=== PATIENT | female | born 1990 | race Hispanic/Latino ===

== ENCOUNTER 2017-10-24 08:52 | Emergency (ER) | payer SELFPAY ==
[~2017-10-24] VITALS: Ht 162.6 cm; Wt 76.7 kg
[2017-10-24] MEDS ORDERED: SODIUM CHLORIDE 0.9% 1000ML 1,000 ML IV STA (08:57)
[2017-10-24] MEDS ORDERED: ONDANSETRON HCL INJ 2 MG/ML VIAL IV STA (08:57)
[2017-10-24 09:19] LABS: CLARITY,URINE CLOUDY (CLEAR); COLOR,URINE YELLOW (YELLOW); LEUKOCYTE ESTERASE ,URINE 1+ (NEGATIVE); NITRITE,URINE NEGATIVE (NEGATIVE)
[2017-10-24 09:20] LABS: BILIRUBIN,URINE 3+ (NEGATIVE); KETONES,URINE 3+ (NEGATIVE); PROTEIN,URINE DIPSTICK 1+ (NEGATIVE); URINE UROBILINOGEN 1 mg/dL (0.2 - 1)
[2017-10-24 09:21] LABS: AMPHETAMINES SCREEN,URINE NEGATIVE (NEGATIVE); BENZODIAZEPINES SCREEN,URINE NEGATIVE (NEGATIVE); PHENCYCLIDINE SCREEN,URINE NEGATIVE (NEGATIVE)
[2017-10-24 09:33] LABS: BACTERIA,URINE MANY /HPF; EPITHELIAL CELLS,URINE MANY /LPF; RBC,URINE 0-5 /HPF (0-5); WBC,URINE (MAN) >50 /HPF (0-5)
[2017-10-24 09:39] LABS: BASOPHILS # (AUTO) 0.1 (0.0-0.1); BASOPHILS % 0.5 % (0.0-1.0); EOSINOPHILS # (AUTO) 0.1 (0.0-0.4); EOSINOPHILS % 0.5 % (0.0-6.0); HEMOGLOBIN 15.7 g/dL (12.0-16.0); LYMPHOCYTES # (AUTO) 2.1 (1.0-3.2); LYMPHOCYTES % 19.5 % (18.0-39.1); MEAN CORPUSCULAR HEMOGLOBIN 30.6 pg (28-32); MEAN CORPUSCULAR HGB CONC 34.1 g/dL (31-35); MEAN CORPUSCULAR VOLUME 89.7 fL (81-99); MONOCYTES % 8.9 % (4.4-11.3); NEUTROPHILS # (AUTO) 7.7 (2.1-6.9); NEUTROPHILS % 70.2 % (38.7-80.0); PLATELET COUNT 489 x10e3/uL (140-360); RED BLOOD COUNT 5.13 x10e6/uL (3.6-5.1); RED CELL DISTRIBUTION WIDTH 11.7 % (11.7-14.4)
[2017-10-24 09:59] LABS: ALANINE AMINOTRANSFERASE 71 IU/L (0-55); ALBUMIN 3.9 g/dL (3.5-5.0); ALBUMIN/GLOBULIN RATIO 0.7 (0.8-2.0); ALKALINE PHOSPHATASE 57 IU/L (40-150); AMYLASE 64 U/L (25-125); ANION GAP 16.5 mmol/L (8-16); BLOOD UREA NITROGEN 13 mg/dL (7-26); BUN/CREATININE RATIO 16 (6-25); CARBON DIOXIDE 24 mmol/L (22-29); CHLORIDE 95 mmol/L (98-107); CREATININE, SERUM 0.82 mg/dL (0.57-1.11); EST GLOMERULAR FILTRATION RATE > 60 ML/MIN (60-); GLUCOSE 108 mg/dL (74-118); LIPASE 49 U/L (8-78); POTASSIUM 3.5 mmol/L (3.5-5.1); SODIUM 132 mmol/L (136-145)
[2017-10-24] MEDS ORDERED: CEFTRIAXONE SOD 1 GM VIAL IV SCH (10:15)
[2017-10-24 11:23] VITALS: BP 119/92
[2017-10-30] MEDS ORDERED: REGLAN10 MG PO (11:36)
== END 2017-10-24 11:15 | disposition home or self-care (01) ==
LOC: ER 08:52
DX: N39.0 Urinary tract infection, site not specified (principal); R11.2 Nausea with vomiting, unspecified; E86.0 Dehydration
CPT/HCPCS: 36415; 80053; 80307; 81001; 82150; 83690; 84702; 85025; 87086; 99284; J0696; J2405; J7030

== ENCOUNTER 2017-10-29 06:15 | Emergency (ER) | payer SELFPAY ==
[~2017-10-29] VITALS: Ht 162.6 cm; Wt 76.7 kg
--- OUTSIDE RECORDS SUMMARY | 2017-10-29 06:17 | XMS REPORT | Continuity of Care Document ---
Author Author [facility] Organization [facility] Address [address] [place] [address] Phone Unavailable Care Team Providers Care Rental Clerk Name Role Phone NO, PCP PCP Unavailable Advance Directives Directive Response Recorded Date/Time Does the patient have an advance directive? No 10/24/17 9:30am If yes, is advance directive on file with [facility]? No 10/24/17 9:30am If not on file with [facility] will patient provide a copy? No 10/24/17 9:30am Do you have a Directive to Physician? No 10/24/17 9:30am Do you have a Medical Power of Cocoa Roaster? No 10/24/17 9:30am Do you have an out of hospital Do Not Resuscitate Order? No 10/24/17 9:30am Do you have any special needs we should be aware of? No 10/24/17 9:30am Do you have a support person here with you today? Yes 10/24/17 9:30am Did patient receive Notice of Privacy Practices? Yes 10/24/17 9:30am Did patient receive patient rights and responsibilities? Yes 10/24/17 9:30am Problems No problem information available. Medications No medication information available. Social History Smoking Status Start Date Stop Date Never Smoker Hospital Discharge Instructions No hospital discharge instruction information available. Plan of Care Discharge Date 10/24/17 11:15am Disposition HOME, SELF-CARE Condition at Discharge Stable Instructions/Education Provided Urinary Tract Infection - Women Vomiting - Adult Forms Provided Work/School Excuse Prescriptions See Medication Section Referrals PANDA HOPKINS MD Address: [address] [place] [address] [address] [place] [address] CRISTY MCKEON MD Address: [address] [place] [address] Additional Instructions/Education 1. increase oral fluids 2. tylenol and motrin as needed 3. return to ed as neede 4. follow up with primary doctor / GI doctor in 1-2 days without fail Functional Status No functional status information available. Allergies, Adverse Reactions, Alerts No known allergies. Immunizations No immunization information available. Vital Signs Acute Vital Signs Vital Response Date/Time Pulse Pulse Rate (adult) 94 bpm (60 - 90) 10/24/2017 11:23am Respiratory Rate 14 bpm (12 - 24) 10/24/2017 11:23am Blood Pressure 119/92 mm Hg 10/24/2017 11:23am Height 5 ft 4 in 10/24/2017 9:00am Weight 169 lb 10/24/2017 9:00am Body Mass Index 29.0 kg/m^2 10/24/2017 9:00am Results Laboratory Results Test Name Result Units Flags Reference Collection Date/Time Result Date/ Time Comments White Blood Count 10.93 x10e3/uL H 4.8-10.8 10/24/2017 9:15am 2017 9:42am Red Blood Count 5.13 x10e6/uL H 3.6-5.1 10/24/2017 9:15am 10/24/2017 9: 42am Hemoglobin 15.7 g/dL 12.0-16.0 10/24/2017 9:1510/24/2017 9:42am Hematocrit 46.0 % H 34.2-44.1 10/24/2017 9:1510/24/2017 9:42am Mean Corpuscular Volume 89.7 fL 81-99 10/24/2017 9:15am 10/24/2017 9: 42am Mean Corpuscular Hemoglobin 30.6 pg 28-32 10/24/2017 9:15am 10/24/2017 9:42am Mean Corpuscular Hemoglobin Concent 34.1 g/dL 31-35 10/24/2017 9:15am 10/24/2017 9:42am Red Cell Distribution Width 11.7 % 11.7-14.4 10/24/2017 9:152017 9:42am Platelet Count 489 x10e3/uL H 140-360 10/24/2017 9:15am 10/24/2017 9: 42am Neutrophils (%) (Auto) 70.2 % 38.7-80.0 10/24/2017 9:15am 10/24/2017 9: 42am Lymphocytes (%) (Auto) 19.5 % 18.0-39.1 10/24/2017 9:1510/24/2017 9: 42am Monocytes (%) (Auto) 8.9 % 4.4-11.3 10/24/2017 9:15am 10/24/2017 9: 42am Eosinophils (%) (Auto) 0.5 % 0.0-6.0 10/24/2017 9:1510/24/2017 9: 42am Basophils (%) (Auto) 0.5 % 0.0-1.0 10/24/2017 9:10/24/2017 9:42am IM GRANULOCYTES % 0.4 % 0.0-1.0 10/24/2017 9:1510/24/2017 9:42am Neutrophils # (Auto) 7.7 H 2.1-6.9 10/24/2017 9:15am 10/24/2017 9: 42am Lymphocytes # (Auto) 2.1 1.0-3.2 10/24/2017 9:1510/24/2017 9:42am Monocytes # (Auto) 1.0 H 0.2-0.8 10/24/2017 9:10/24/2017 9:42am Eosinophils # (Auto) 0.1 0.0-0.4 10/24/2017 9:1510/24/2017 9:42am Basophils # (Auto) 0.1 0.0-0.1 10/24/2017 9:1510/24/2017 9:42am Absolute Immature Granulocyte (auto 0.04 x10e3/uL 0-0.1 10/24/2017 9: 1510/24/2017 9:42am Urine Color YELLOW YELLOW 10/24/2017 9:10am 10/24/2017 9:20am Urine Clarity CLOUDY H CLEAR 10/24/2017 9:10a10/24/2017 9:20am Urine Specific [place] 1.025 1.010-1.025 10/24/2017 9:10am 2017 9:20am Urine pH 6.5 5 - 7 10/24/2017 9:10a10/24/2017 9:20am Urine Leukocyte Esterase 1+ H NEGATIVE 10/24/2017 9:10a10/24/2017 9: 20am Urine Nitrite NEGATIVE NEGATIVE 10/24/2017 9:10a10/24/2017 9:20am Urine Protein 1+ H NEGATIVE 10/24/2017 9:10a10/24/2017 9:20am Urine Glucose (UA) NEGATIVE NEGATIVE 10/24/2017 9:10am 10/24/2017 9: 20am Urine Ketones 3+ H NEGATIVE 10/24/2017 9:10am 10/24/2017 9:20am Urine Opiates Screen NEGATIVE NEGATIVE 10/24/2017 9:10am 10/24/2017 9 :21am Urine Barbiturates Screen NEGATIVE NEGATIVE 10/24/2017 9:10a2017 9:21am Urine Phencyclidine Screen NEGATIVE NEGATIVE 10/24/2017 9:10am 2017 9:21am Urine Amphetamines Screen NEGATIVE NEGATIVE 10/24/2017 9:10am 2017 9:21am Urine Methamphetamines Screen NEGATIVE NEGATIVE 10/24/2017 9:10am 9:21am Urine Benzodiazepines Screen NEGATIVE NEGATIVE 10/24/2017 9:10am 9:21am Urine Cocaine Screen NEGATIVE NEGATIVE 10/24/2017 9:10a10/24/2017 9 :21am Urine Cannabinoids Screen NEGATIVE NEGATIVE 10/24/2017 9:10am 2017 9:21am THESE RESULTS ARE FOR MEDICAL TREATMENT ONLY *THIS REPORT CONTAINS UNCONFIRMED SCREENING RESULTS* POSITIVE RESULTS WILL BE CONFIRMED BY REFERENCE LAB UPON REQUEST CUT-OFF DRUG CLASS CONCENTRATION ng/mL Amphetamines 1000 Methamphetamines 1000 Cocaine 300 Opiate 300 Phencyclidine 25 Cannabinoid 50 Barbiturates 300 Benzodiazepine 300 Methadone 300 Urine Methadone Screen NEGATIVE NEGATIVE 10/24/2017 9:10am 2017 9:21am THESE RESULTS ARE FOR MEDICAL TREATMENT ONLY *THIS REPORT CONTAINS UNCONFIRMED SCREENING RESULTS* POSITIVE RESULTS WILL BE CONFIRMED BY REFERENCE LAB UPON REQUEST CUT-OFF DRUG CLASS CONCENTRATION ng/mL Amphetamines 1000 Methamphetamines 1000 Cocaine Metabolite 300 Opiate 300 Phencyclidine 25 Cannabinoid 50 Barbiturates 300 Benzodiazepine 300 Methadone 300 Urine Urobilinogen 1 mg/dL 0.2 - 1 10/24/2017 9:10a10/24/2017 9:20am Urine Bilirubin 3+ H NEGATIVE 10/24/2017 9:10a10/24/2017 9:20am Urine Blood 2+ H NEGATIVE 10/24/2017 9:10a10/24/2017 9:20am Urine WBC >50 /HPF H 0-5 10/24/2017 9:10a10/24/2017 9:33am Urine RBC 0-5 /HPF 0-5 10/24/2017 9:10a10/24/2017 9:33am Urine Bacteria MANY /HPF H NONE 10/24/2017 9:10a10/24/2017 9:33am Urine Epithelial Cells MANY /LPF NONE 10/24/2017 9:10a10/24/2017 9: 33am Sodium Level 132 mmol/L L 136-145 10/24/2017 9:1510/24/2017 10:00am Potassium Level 3.5 mmol/L 3.5-5.1 10/24/2017 9:1510/24/2017 10: 00am Chloride Level 95 mmol/L L 98-107 10/24/2017 9:10/24/2017 10:00am Carbon Dioxide Level 24 mmol/L 22-29 10/24/2017 9:1510/24/2017 10: 00am Anion Gap 16.5 mmol/L H 8-16 10/24/2017 9:10/24/2017 10:00am Blood Urea Nitrogen 13 mg/dL 7-10/24/2017 9:10/24/2017 10:00am Creatinine 0.82 mg/dL 0.57-1.11 10/24/2017 9:1510/24/2017 10:00am BUN/Creatinine Ratio 16 6-25 10/24/2017 9:1510/24/2017 10:00am Estimat Glomerular Filtration Rate > 60 ML/MIN 60- 10/24/2017 9:15 10:00am Ranges were taken from the National Kidney Disease Education Program and the National Kidney Foundation literature. Reference ranges: 60 or greater: Normal 16-59 (for 3 consecutive months): Chronic kidney disease 15 or less: Kidney failure Glucose Level 108 mg/dL 74-118 10/24/2017 9:1510/24/2017 10:00am Calcium Level 10.0 mg/dL 8.4-10.2 10/24/2017 9:1510/24/2017 10:00am Total Bilirubin 1.4 mg/dL H 0.2-1.2 10/24/2017 9:1510/24/2017 10: 00am Aspartate Amino Transf (AST/SGOT) 34 IU/L 5-34 10/24/2017 9:152017 10:00am Alanine Aminotransferase (ALT/SGPT) 71 IU/L H 0-55 10/24/2017 9:15 10:00am Total Protein 9.5 g/dL H 6.5-8.1 10/24/2017 9:1510/24/2017 10:00am Albumin 3.9 g/dL 3.5-5.0 10/24/2017 9:1510/24/2017 10:00am Globulin 5.6 g/dL H 2.3-3.5 10/24/2017 9:1510/24/2017 10:00am Albumin/Globulin Ratio 0.7 L 0.8-2.0 10/24/2017 9:1510/24/2017 10: 00am Alkaline Phosphatase 57 IU/L 40-150 10/24/2017 9:1510/24/2017 10: 00am Amylase Level 64 U/L 25-125 10/24/2017 9:1510/24/2017 10:00am Lipase 49 U/L 8-78 10/24/2017 9:1510/24/2017 10:00am Human Chorionic Gonadotropin, Qual NEGATIVE NEGATIVE 10/24/2017 9: 1510/24/2017 9:50am Procedures No procedure information available. Encounters Encounter Location Arrival/Admit Date Discharge/Depart Date Attending Provider Departed Emergency Room [facility] 10/24/17 8:52am 11:15am NICHELLE GAMA DO
[2017-10-29] MEDS ORDERED: SODIUM CHLORIDE 0.9% 1000ML 1,000 ML IV STA (06:43)
[2017-10-29] MEDS ORDERED: ONDANSETRON HCL 4 MG ORAL DISINTEGRATING TAB PO ONE (06:45)
[2017-10-29 06:58] LABS: BASOPHILS # (AUTO) 0.1 (0.0-0.1); BASOPHILS % 0.8 % (0.0-1.0); CLARITY,URINE CLOUDY (CLEAR); COLOR,URINE YELLOW (YELLOW); EOSINOPHILS # (AUTO) 0.1 (0.0-0.4); EOSINOPHILS % 0.8 % (0.0-6.0); HEMATOCRIT 41.5 % (34.2-44.1); HEMOGLOBIN 14.6 g/dL (12.0-16.0); LEUKOCYTE ESTERASE ,URINE 1+ (NEGATIVE); LYMPHOCYTES # (AUTO) 2.1 (1.0-3.2); LYMPHOCYTES % 27.1 % (18.0-39.1); MEAN CORPUSCULAR HEMOGLOBIN 31.4 pg (28-32); MEAN CORPUSCULAR HGB CONC 35.2 g/dL (31-35); MEAN CORPUSCULAR VOLUME 89.2 fL (81-99); MONOCYTES # (AUTO) 0.7 (0.2-0.8); MONOCYTES % 9.4 % (4.4-11.3); NEUTROPHILS # (AUTO) 4.8 (2.1-6.9); NEUTROPHILS % 61.6 % (38.7-80.0); PLATELET COUNT 359 x10e3/uL (140-360); RED BLOOD COUNT 4.65 x10e6/uL (3.6-5.1); RED CELL DISTRIBUTION WIDTH 12.1 % (11.7-14.4)
[2017-10-29 06:59] LABS: BILIRUBIN,URINE 1+ (NEGATIVE); KETONES,URINE 1+ (NEGATIVE); NITRITE,URINE NEGATIVE (NEGATIVE); PROTEIN,URINE DIPSTICK 2+ (NEGATIVE); URINE UROBILINOGEN 0.2 mg/dL (0.2 - 1)
[2017-10-29 07:01] LABS: PREGNANCY TEST, URINE NEGATIVE (NEGATIVE)
[2017-10-29 07:13] LABS: ALANINE AMINOTRANSFERASE 48 IU/L (0-55); ALBUMIN 3.5 g/dL (3.5-5.0); ALBUMIN/GLOBULIN RATIO 0.8 (0.8-2.0); ALKALINE PHOSPHATASE 51 IU/L (40-150); AMYLASE 44 U/L (25-125); ANION GAP 15.6 mmol/L (8-16); BLOOD UREA NITROGEN 7 mg/dL (7-26); BUN/CREATININE RATIO 10 (6-25); CALCIUM 9.4 mg/dL (8.4-10.2); CARBON DIOXIDE 23 mmol/L (22-29); CHLORIDE 100 mmol/L (98-107); CREATININE, SERUM 0.73 mg/dL (0.57-1.11); EST GLOMERULAR FILTRATION RATE > 60 ML/MIN (60-); GLUCOSE 110 mg/dL (74-118); LIPASE 28 U/L (8-78); POTASSIUM 3.6 mmol/L (3.5-5.1); SODIUM 135 mmol/L (136-145)
[2017-10-29 07:17] LABS: BACTERIA,URINE MODERATE /HPF; EPITHELIAL CELLS,URINE MANY /LPF; RBC,URINE 21-50 /HPF (0-5); WBC,URINE (MAN) >50 /HPF (0-5)
[2017-10-29 07:18] LABS: YEAST,URINE FEW
--- NOTE | 2017-10-29 08:02 | Diagnostic Imaging Report ---
PROCEDURE:X-RAY ABDOMEN - KUB COMPARISON:None. INDICATIONS:VOMITING, BLURRED VISION FINDINGS: There is a non-obstructed bowel-gas pattern. No air-fluid levels or pneumoperitoneum. Moderate amount of retained feces is present in the colon and rectum. Radiodense foci projecting over the colon likely represent ingested contents. There are no calcifications projected over the renal shadows, expected course of the ureters or bladder. There are no acute osseous abnormalities. The lung bases are clear. CONCLUSION: No acute radiographic abnormality. Dictated by: Ge Delgado M.D. on 10/29/2017 at 8:03 Electronically approved by: Ge Delgado M.D. on 10/29/2017 at 8:03
[2017-10-29 08:24] LABS: CLARITY,URINE CLEAR (CLEAR); COLOR,URINE YELLOW (YELLOW); LEUKOCYTE ESTERASE ,URINE NEGATIVE (NEGATIVE); NITRITE,URINE NEGATIVE (NEGATIVE); PROTEIN,URINE DIPSTICK NEGATIVE (NEGATIVE)
[2017-10-29 08:25] LABS: BILIRUBIN,URINE NEGATIVE (NEGATIVE); KETONES,URINE 1+ (NEGATIVE); URINE UROBILINOGEN 0.2 mg/dL (0.2 - 1)
[2017-10-29 08:32] LABS: BACTERIA,URINE RARE /HPF; EPITHELIAL CELLS,URINE MODERATE /LPF; RBC,URINE 0-5 /HPF (0-5); WBC,URINE (MAN) 0-5 /HPF (0-5)
[2017-10-29 09:29] VITALS: BP 131/93
[2017-10-30] MEDS ORDERED: REGLAN10 MG PO (11:36)
== END 2017-10-29 09:48 | disposition home or self-care (01) ==
LOC: ER 06:15
DX: R11.2 Nausea with vomiting, unspecified (principal); E86.0 Dehydration
CPT/HCPCS: 36415; 74018; 80053; 81001; 81025; 82150; 83690; 85025; 87086; 99284; J7030

== ENCOUNTER → 2017-10-31 | Day surgery (SDC) | payer SELFPAY ==
[~2017-10-31] MED LIST: FENTANYL CITRATE/PF 100MCG/2 ML INJ ONE; LIDOCAINE HCL 2% LOCAL INJ 5 ML SDV VIAL INJ ONE; MIDAZOLAM HCL 2 MG/2 ML VIAL ONE; PROPOFOL IV EMULSION 10 MG/ML 50 ML VIAL ONE; REGLAN10 MG PO
--- NOTE | 2017-10-31 18:08 | Operative Report ---
DATE OF PROCEDURE: October 31, 2017 REFERRING PHYSICIAN: Dr. Omid Ca PROCEDURE PERFORMED: Esophagogastroduodenoscopy with biopsies and balloon dilatation of pyloric channel stricture. INDICATIONS FOR EGD: Nausea, vomiting and coffee-ground emesis. MEDICATION: Patient was done under MAC. Please see anesthesiologist's note. PROCEDURE: With the patient in the left lateral decubitus position, the flexible fiberoptic Olympus gastroscope was introduced into the esophagus under direct visualization without any difficulty. There was some patchy erythema noted in the distal esophagus. GE junction was nodular and somewhat friable and was biopsied. The scope was then advanced with ease into the stomach. Mucosa overlying the antrum and the body revealed some patchy erythema and low-grade to moderate edema, and biopsies were obtained and sent to stain for H. pylori. The pylorus was stenotic, and that was dilated to a size 20 mm per TTS balloon dilators. It was then traversed with ease. The scope was advanced all the way to the 2nd portion of the duodenum. The scope was then withdrawn slowly. Mucosa overlying the proximal 2nd portion and the duodenal bulb appeared to be within normal limits. The scope was then withdrawn back into the stomach and retroflexed. The mucosa overlying the fundus and the cardia appeared to be within normal limits. The scope was then straightened out. The stomach was decompressed. The scope was subsequently withdrawn. Patient tolerated the procedure well. IMPRESSION 1. Distal esophagitis. 2. Gastroesophageal junction, nodular, friable, biopsied. 3. Gastritis, biopsied. Biopsies sent to stain for Helicobacter pylori. 4. 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 PLAN: Follow up histology. Initiate Protonix 40 mg 1 p.o. q.a.m. a.c. Job#: [id number] RI cc:ROSETTE CA DO
--- OUTSIDE RECORDS SUMMARY | 2017-11-02 11:17 | XMS REPORT ---
Author Author [facility] Address Unknown Phone Unavailable Care Team Providers Care Dish Washer Name Role Phone LIZBETH TUCKER Unavailable Unavailable Problems This patient has no known problems. Allergies, Adverse Reactions, Alerts This patient has no known allergies or adverse reactions. Medications This patient has no known medications. Results Test Description Test Time Test Comments Text Results Atomic Results Result Comments ABDOMEN-1VIEW (KUB) [place] [address] Patient Name: JULIAN ARNOLD MR #: [id number] : 1990 Age/Sex: 27/F Req #: [id number] Adm Physician: Ordered by: LIZBETH TUCKER MD Report #: [id number] Location: ER Room/Bed: Procedure: [id number] DX/ABDOMEN-1VIEW (KUB) Exam Date: 10/29/17 Exam Time: 0730 REPORT STATUS: Signed PROCEDURE: X-RAY ABDOMEN - KUB COMPARISON: None. INDICATIONS: VOMITING, BLURRED VISION FINDINGS: There is a non-obstructed bowel-gas pattern. No air- fluid levels or pneumoperitoneum. Moderate amount of retained feces is present in the colon and rectum. Radiodense foci projecting over the colon likely represent ingested contents. There are no calcifications projected over the renal shadows, expected course of the ureters or bladder. There are no acute osseous abnormalities. The lung bases are clear. CONCLUSION: No acute radiographic abnormality. Dictated by: Nichelle Delgado M.D. on 10/29/2017 at 8:03 Electronically approved by: Nichelle Delgado M.D. on 10/29/2017 at 8:03 Dictated By: NICHELLE DELGADO MD 2 Transcribed By: EITAN on 10/29/17 0803 COPY TO: LIZBETH TUCKER MD
--- OUTSIDE RECORDS SUMMARY | 2017-11-02 11:17 | XMS REPORT | Continuity of Care Document ---
Author Author [facility] Organization [facility] Address [address] [place] [address] Phone Unavailable Care Team Providers Care Mixer Runner Name Role Phone ROSETTE CA DO PCP Advance Directives Directive Response Recorded Date/Time Does the patient have an advance directive? No 10/24/17 9:30am If yes, is advance directive on file with [facility]? No 10/24/17 9:30am If not on file with [facility] will patient provide a copy? No 10/24/17 9:30am Do you have a Directive to Physician? No 10/29/17 6:14am Do you have a Medical Power of Hydroelectric Plant Technician? No 10/29/17 6:14am Do you have an out of hospital Do Not Resuscitate Order? No 10/29/17 6:14am Do you have any special needs we should be aware of? No 10/29/17 6:14am Do you have a support person here with you today? Yes 10/29/17 6:14am Did patient receive Notice of Privacy Practices? Yes 10/29/17 6:14am Did patient receive patient rights and responsibilities? Yes 10/29/17 6:14am Problems No problem information available. Medications No medication information available. Social History Smoking Status Start Date Stop Date Never Smoker Hospital Discharge Instructions No hospital discharge instruction information available. Plan of Care Discharge Date 10/29/17 9:48am Disposition HOME, SELF-CARE Condition at Discharge Stable Instructions/Education Provided Vomiting - Adult Forms Provided Work/School Excuse Prescriptions See Medication Section Referrals ROSETTE CA DO Order Date: Call for an appointment Address: [address] [place] [address] [address], [place] [id number] Additional Instructions/Education Take medication as prescribed Follow up with PCP in a couple of days Return to ER if worsening of symptoms Functional Status No functional status information available. Allergies, Adverse Reactions, Alerts No known allergies. Immunizations No immunization information available. Vital Signs Acute Vital Signs Vital Response Date/Time Pulse Pulse Rate (adult) 92 bpm (60 - 90) 10/29/2017 9:29am Respiratory Rate 16 bpm (12 - 24) 10/29/2017 9:29am Blood Pressure 131/93 mm Hg 10/29/2017 9:29am Height 5 ft 4 in 10/29/2017 6:31am Weight 169 lb 10/29/2017 6:31am Body Mass Index 29.0 kg/m^2 10/29/2017 6:31am Results Laboratory Results Test Name Result Units Flags Reference Collection Date/Time Result Date/ Time Comments Urine Opiates Screen NEGATIVE NEGATIVE 10/24/2017 9:10am 10/24/2017 9 :21am Urine Barbiturates Screen NEGATIVE NEGATIVE 10/24/2017 9:10am 2017 9:21am Urine Phencyclidine Screen NEGATIVE NEGATIVE 10/24/2017 9:10am 2017 9:21am Urine Amphetamines Screen NEGATIVE NEGATIVE 10/24/2017 9:10am 2017 9:21am Urine Methamphetamines Screen NEGATIVE NEGATIVE 10/24/2017 9:10am 9:21am Urine Benzodiazepines Screen NEGATIVE NEGATIVE 10/24/2017 9:10am 9:21am Urine Cocaine Screen NEGATIVE NEGATIVE 10/24/2017 9:10am 10/24/2017 9 :21am Urine Cannabinoids Screen NEGATIVE NEGATIVE [...] 50 Barbiturates 300 Benzodiazepine 300 Methadone 300 Human Chorionic Gonadotropin, Qual NEGATIVE NEGATIVE 10/24/2017 9: 15am 10/24/2017 9:50am White Blood Count 7.76 x10e3/uL 4.8-10.8 10/29/2017 6:39am 10/29/2017 7 :05am Red Blood Count 4.65 x10e6/uL 3.6-5.1 10/29/2017 6:39am 10/29/2017 7: 05am Hemoglobin 14.6 g/dL 12.0-16.0 10/29/2017 6:39am 10/29/2017 7:05am Hematocrit 41.5 % 34.2-44.1 10/29/2017 6:39am 10/29/2017 7:05am Mean Corpuscular Volume 89.2 fL 81-99 10/29/2017 6:39am 10/29/2017 7: 05am Mean Corpuscular Hemoglobin 31.4 pg 28-32 10/29/2017 6:39am 10/29/2017 7:05am Mean Corpuscular Hemoglobin Concent 35.2 g/dL H 31-35 10/29/2017 6:39am 10/29/2017 7:05am Red Cell Distribution Width 12.1 % 11.7-14.4 10/29/2017 6:39am 2017 7:05am Platelet Count 359 x10e3/uL 140-360 10/29/2017 6:39am 10/29/2017 7: 05am Neutrophils (%) (Auto) 61.6 % 38.7-80.0 10/29/2017 6:39am 10/29/2017 7: 05am Lymphocytes (%) (Auto) 27.1 % 18.0-39.1 10/29/2017 6:39am 10/29/2017 7: 05am Monocytes (%) (Auto) 9.4 % 4.4-11.3 10/29/2017 6:39am 10/29/2017 7: 05am Eosinophils (%) (Auto) 0.8 % 0.0-6.0 10/29/2017 6:39am 10/29/2017 7: 05am Basophils (%) (Auto) 0.8 % 0.0-1.0 10/29/2017 6:39am 10/29/2017 7:05am IM GRANULOCYTES % 0.3 % 0.0-1.0 10/29/2017 6:39am 10/29/2017 7:05am Neutrophils # (Auto) 4.8 2.1-6.9 10/29/2017 6:39am 10/29/2017 7:05am Lymphocytes # (Auto) 2.1 1.0-3.2 10/29/2017 6:39am 10/29/2017 7:05am Monocytes # (Auto) 0.7 0.2-0.8 10/29/2017 6:39am 10/29/2017 7:05am Eosinophils # (Auto) 0.1 0.0-0.4 10/29/2017 6:39am 10/29/2017 7:05am Basophils # (Auto) 0.1 0.0-0.1 10/29/2017 6:39am 10/29/2017 7:05am Absolute Immature Granulocyte (auto 0.02 x10e3/uL 0-0.1 10/29/2017 6: 39am 10/29/2017 7:05am Urine Color YELLOW YELLOW 10/29/2017 8:1210/29/2017 8:25am Urine Clarity CLEAR CLEAR 10/29/2017 8:1210/29/2017 8:25am Urine Specific [place] 1.015 1.010-1.025 10/29/2017 8:122017 8:25am Urine pH 7 5 - 7 10/29/2017 8:10/29/2017 8:25am Urine Leukocyte Esterase NEGATIVE NEGATIVE 10/29/2017 8:122017 8:25am Urine Nitrite NEGATIVE NEGATIVE 10/29/2017 8:1210/29/2017 8:25am Urine Protein NEGATIVE NEGATIVE 10/29/2017 8:1210/29/2017 8:25am Urine Glucose (UA) NEGATIVE NEGATIVE 10/29/2017 8:12am 10/29/2017 8: 25am Urine Ketones 1+ H NEGATIVE 10/29/2017 8:12am 10/29/2017 8:25am Urine Urobilinogen 0.2 mg/dL 0.2 - 1 10/29/2017 8:12am 10/29/2017 8: 25am Urine Bilirubin NEGATIVE NEGATIVE 10/29/2017 8:12am 10/29/2017 8: 25am Urine Blood NEGATIVE NEGATIVE 10/29/2017 8:12am 10/29/2017 8:25am Urine WBC 0-5 /HPF 0-5 10/29/2017 8:12am 10/29/2017 8:33am Urine RBC 0-5 /HPF 0-5 10/29/2017 8:12am 10/29/2017 8:33am Urine Bacteria RARE /HPF NONE 10/29/2017 8:12am 10/29/2017 8:33am Urine Epithelial Cells MODERATE /LPF NONE 10/29/2017 8:12am 10/29/2017 8:33am Urine Yeast FEW H NONE 10/29/2017 6:39am 10/29/2017 7:18am Urine Test NEGATIVE NEGATIVE 10/29/2017 6:39am 10/29/2017 7 :02am Sodium Level 135 mmol/L L 136-145 10/29/2017 6:39am 10/29/2017 7:16am Potassium Level 3.6 mmol/L 3.5-5.1 10/29/2017 6:39am 10/29/2017 7:16am Chloride Level 100 mmol/L 98-107 10/29/2017 6:39am 10/29/2017 7:16am Carbon Dioxide Level 23 mmol/L 22-29 10/29/2017 6:39am 10/29/2017 7: 16am Anion Gap 15.6 mmol/L 8-10/29/2017 6:39am 10/29/2017 7:16am Blood Urea Nitrogen 7 mg/dL 7-10/29/2017 6:39am 10/29/2017 7:16am Creatinine 0.73 mg/dL 0.57-1.11 10/29/2017 6:39am 10/29/2017 7:16am BUN/Creatinine Ratio 10 6-25 10/29/2017 6:39am 10/29/2017 7:16am Estimat Glomerular Filtration Rate > 60 ML/MIN 60- 10/29/2017 6:39am 7:16am Ranges were taken from the National Kidney Disease Education Program and the National Kidney Foundation literature. Reference ranges: 60 or greater: Normal 16-59 (for 3 consecutive months): Chronic kidney disease 15 or less: Kidney failure Glucose Level 110 mg/dL 74-118 10/29/2017 6:39am 10/29/2017 7:16am Calcium Level 9.4 mg/dL 8.4-10.2 10/29/2017 6:39am 10/29/2017 7:16am Total Bilirubin 1.0 mg/dL 0.2-1.2 10/29/2017 6:39am 10/29/2017 7:16am Aspartate Amino Transf (AST/SGOT) 23 IU/L 5-34 10/29/2017 6:39am 2017 7:16am Alanine Aminotransferase (ALT/SGPT) 48 IU/L 0-55 10/29/2017 6:39am 7:16am Total Protein 8.1 g/dL 6.5-8.1 10/29/2017 6:39am 10/29/2017 7:16am Albumin 3.5 g/dL 3.5-5.0 10/29/2017 6:39am 10/29/2017 7:16am Globulin 4.6 g/dL H 2.3-3.5 10/29/2017 6:39am 10/29/2017 7:16am Albumin/Globulin Ratio 0.8 0.8-2.0 10/29/2017 6:39am 10/29/2017 7: 16am Alkaline Phosphatase 51 IU/L 40-150 10/29/2017 6:39am 10/29/2017 7: 16am Amylase Level 44 U/L 25-125 10/29/2017 6:39am 10/29/2017 7:16am Lipase 28 U/L 8-78 10/29/2017 6:39am 10/29/2017 7:16am Procedures No procedure information available. Encounters Encounter Location Arrival/Admit Date Discharge/Depart Date Attending Provider Departed Emergency Room [facility] 10/29/17 6:15am 9:48am LIZBETH TUCKER MD Departed Emergency Room [facility] 10/24/17 8:52am 11:15am NICHELLE GAMA DO
[2017-11-04 06:17] LABS: ENDOMYSIAL ANTIBODIES, IGA Negative (Negative)
== END | disposition home or self-care (01) ==
LOC: OR 12:17
PROVIDERS: ATTEND Internal Medicine Gastroenterology
DX: K29.70 Gastritis, unspecified, without bleeding (principal); K31.1 Adult hypertrophic pyloric stenosis; K20.9 Esophagitis, unspecified; K22.8 Other specified diseases of esophagus
CPT/HCPCS: 43239; 43245; 81025; 82784; 83516; 86256; J2001; J2250

== ENCOUNTER 2017-11-05 13:19 | Emergency (ER) ==
[~2017-11-05] VITALS: Ht 162.6 cm; Wt 76.7 kg
[~2017-11-05 13:19] MED LIST changes: -FENTANYL CITRATE/PF 100MCG/2 ML INJ ONE; -LIDOCAINE HCL 2% LOCAL INJ 5 ML SDV VIAL INJ ONE; -MIDAZOLAM HCL 2 MG/2 ML VIAL ONE; -PROPOFOL IV EMULSION 10 MG/ML 50 ML VIAL ONE
--- NOTE | 2017-11-05 15:07 | Diagnostic Imaging Report ---
Exam: Head CT without contrast History: Papilledema. Comparison studies: None Technique: Axial images were obtained from the skull base to the vertex. Coronal and sagittal images reconstructed from the axial data. Intravenous contrast: None Findings: Scalp: No abnormalities. Bones: No fractures, blastic or lytic lesions. Brain sulci: Appropriate for age. Ventricles: Normal in size and configuration. No hydrocephalus. Extra-axial spaces: No masses, no fluid collection. Parenchyma: No abnormal densities. No masses, acute hemorrhage, acute or chronic vascular insults. Sellar/suprasellar region: No abnormalities. Craniocervical junction: Patent foramen magnum. No Chiari one malformation. IMPRESSION: No intracranial abnormalities. Signed by: Dr. Leonidas Peterson M.D. on 11/05/2017 3:03 PM
== END 2017-11-05 16:05 | disposition home or self-care (01) ==
LOC: ER 13:19
DX: H47.10 Unspecified papilledema (principal); H50.05 Alternating esotropia
CPT/HCPCS: 70450; 99283